=== PATIENT | female | born 1945 | race Caucasian/White ===

== ENCOUNTER 2021-07-16 15:24 | Inpatient (IN) | payer MEDICARE, OTHER ==
[~2021-07-16] VITALS: Ht 170.2 cm; Wt 106.1 kg
--- NOTE | 2021-07-16 15:45 | NUR ---
BIB PA FROM [facility],C/O DIZZINESS AND WEAKNESS X 2 WEEKS. AAOX4, NOT IN DISTRESS
--- NOTE | 2021-07-16 16:00 | NUR ---
BLOOD DRAWN AND SENT TO LAB
--- NOTE | 2021-07-16 16:20 | NUR ---
AT BED SIDE
--- NOTE | 2021-07-16 16:50 | NUR ---
PATIENT FOR CT HEAD VIA [facility]
[2021-07-16 17:01] LABS: BASOPHILS % (AUTO) 0.5 % (0.0-2.0); EOSINOPHILS % (AUTO) 2.9 % (0.0-6.0); HEMATOCRIT 44 % (33-45); HEMOGLOBIN 14.5 g/dL (11.5-14.8); LYMPHOCYTES # (AUTO) 3.6 K/uL (0.8-4.8); LYMPHOCYTES % (AUTO) 40.1 % (20.0-44.0); MEAN CORPUSCULAR HGB CONC 33 g/dl (31.0-36.0); MEAN CORPUSCULAR VOLUME 90 fL (82-100); MONOCYTES # (AUTO) 0.7 K/uL (0.1-1.30); MONOCYTES % (AUTO) 7.2 % (2.0-12.0); NEUTROPHILS # (AUTO) 4.5 K/uL (1.8-8.9); NEUTROPHILS % (AUTO) 49.3 % (43.0-81.0); PLATELET COUNT (AUTO) 281 K/uL (150-450); RED BLOOD CELL COUNT(AUTO) 4.85 MIL/uL (4.0-5.2); WHITE BLOOD COUNT (AUTO) 9.1 K/uL (4.3-11.0)
--- NOTE | 2021-07-16 17:21 | NUR ---
MOVE SHEET SUBMITTED AND CALLED FOR TELE BED.
[2021-07-16] MEDS ORDERED: CLOP75TA15 PO (17:31)
[2021-07-16] MEDS ORDERED: INSU100V3 SQ (17:31)
[2021-07-16] MEDS ORDERED: ISOS30TA86 PO (17:31)
[2021-07-16] MEDS ORDERED: POTA10TA10 PO (17:31)
[2021-07-16] MEDS ORDERED: METO25TA3 PO (17:31)
[2021-07-16] MEDS ORDERED: FESO8TAB PO (17:31)
[2021-07-16] MEDS ORDERED: ASPI-1169 PO (17:31)
[2021-07-16] MEDS ORDERED: MULT-447 PO (17:31)
[2021-07-16] MEDS ORDERED: FURO-144 PO (17:31)
[2021-07-16] MEDS ORDERED: FAMO40TA7 PO (17:31)
[2021-07-16] MEDS ORDERED: LEVO88TA5 PO (17:31)
[2021-07-16] MEDS ORDERED: GLIM2TAB31 PO (17:31)
[2021-07-16 17:40] LABS: CALCIUM, SERUM 9.5 mg/dL (8.5-10.1); CARBON DIOXIDE 29 mmol/L (21-32); CHLORIDE 106 mmol/L (98-107); CREATININE 0.9 mg/dL (0.6-1.3); GLUCOSE 152 mg/dL (74-106); SODIUM SERUM 143 mmol/L (136-145); UREA NITROGEN, BLOOD 17 mg/dL (7-18)
[2021-07-16 17:48] LABS: ALANINE AMINOTRANSFERASE 29 U/L (12-78); ALBUMIN 3.7 g/dL (3.4-5.0); ALKALINE PHOSPHATASE 58 U/L (46-116); ASPARTATE AMINOTRANSFERASE 21 U/L (15-37); BILIRUBIN,DIRECT 0.1 mg/dL (0.0-0.2); BILIRUBIN,TOTAL 0.5 mg/dL (0.2-1.0); TOTAL PROTEIN, SERUM 7.2 g/dL (6.4-8.2)
--- NOTE | 2021-07-16 18:03 | NUR ---
[facility] CALLED IT GENERALIST PAGED.
--- NOTE | 2021-07-16 18:04 | NUR ---
SWAB FOR COVID 19 TEST AND URINE SAMPLE SENT TO LAB.
[2021-07-16 18:28] LABS: BILIRUBIN,URINE NEGATIVE (NEGATIVE); COLOR,URINE YELLOW (YELLOW); LEUKOCYTE ESTERASE ,URINE NEGATIVE (NEGATIVE); NITRITE, URINE NEGATIVE (NEGATIVE); PH,URINE 5.5 (5.0-8.0); PROTEIN,URINE NEGATIVE (NEGATIVE); UGLUCOSE NEGATIVE (NEGATIVE); UROBILINOGEN,URINE 0.2 EU/dL (0.2)
[2021-07-16] MEDS ORDERED: MAG HYDROX/AL HYDROX/SIMETH 30 ML UDC PO PRN (18:30)
[2021-07-16] MEDS ORDERED: ONDANSETRON HCL/PF 4 MG/2 ML VIAL IVP PRN (18:30)
[2021-07-16] MEDS ORDERED: ACETAMINOPHEN 325 MG TABLET PO PRN (18:30)
[2021-07-16] MEDS ORDERED: Z GUARD REMEDY 4 OZ OINT TP PRN (18:30)
[2021-07-16] MEDS ORDERED: DEXTROSE 50%-WATER 50 ML DISP.SYRIN IV PRN (18:30)
--- NOTE | 2021-07-16 20:07 | NUR ---
REPORT GIVEN TO PABLO MILLER FOR NISA.
--- NOTE | 2021-07-16 20:25 | NUR ---
ENDBAND CUTTER HAND NOTE ADMIT 75 YEAR OLD FEMALE TO [facility] AT ROOM 105 ON TELEMETRY MONITORING,ADMISSION DIAGNOSIS IS NSTEMI PATIENT COMPLAINS DIZZINESS AND WEAKNESS FOR 2 WEEKS,ALERT ORIENTED X3 VERBALLY RESPONSIVE ON ROOM AIR O2:97% IV SITE IS ON RIGHT AC INTACT PATENT,AMBULATORY WITH ASSIST,SAFETY MEASURE IMPLEMENT BED IN LOW POSITION NAD LOCKED,BED ALARM IS ON,CALL LIGHT WITHIN REACH,CONTINUE TO MONITOR.
--- NOTE | 2021-07-16 20:26 | NUR ---
PT TRANSPORTED TO ROOM 105 ON FERMENTER PER ACLS PROTOCOL WITHOUT INCIDENT
--- NOTE | 2021-07-16 21:00 | NUR ---
RN NOTE PATIENT WISH HER CODE STATUS DNR INFORMED HER SON,CONTINUE TO MONITOR.
[2021-07-16] MEDS: ENOXAPARIN SODIUM 100 MG/ML DISP.SYRIN SQ SCH (21:01)
[2021-07-16 21:06] VITALS: BP 116/93
[2021-07-16] MEDS ORDERED: MAGNESIUM HYDROXIDE 30 ML UDC PO PRN (22:00)
[2021-07-16] MEDS: BLOOD SUGAR DIAGNOSTIC 1 EACH STRIP VI SCH (22:00)
[2021-07-17] VITALS: BP 143/61
[2021-07-17 04:00] VITALS: BP 144/69
[2021-07-17 06:28] LABS: BASOPHILS % (AUTO) 0.4 % (0.0-2.0); EOSINOPHILS % (AUTO) 4.2 % (0.0-6.0); HEMATOCRIT 42 % (33-45); HEMOGLOBIN 14.1 g/dL (11.5-14.8); LYMPHOCYTES # (AUTO) 3.7 K/uL (0.8-4.8); LYMPHOCYTES % (AUTO) 45.7 % (20.0-44.0); MEAN CORPUSCULAR HGB CONC 34 g/dl (31.0-36.0); MEAN CORPUSCULAR VOLUME 90 fL (82-100); MONOCYTES # (AUTO) 0.7 K/uL (0.1-1.30); MONOCYTES % (AUTO) 8.2 % (2.0-12.0); NEUTROPHILS # (AUTO) 3.3 K/uL (1.8-8.9); NEUTROPHILS % (AUTO) 41.5 % (43.0-81.0); PLATELET COUNT (AUTO) 246 K/uL (150-450); RED BLOOD CELL COUNT(AUTO) 4.66 MIL/uL (4.0-5.2)
[2021-07-17 06:46] LABS: CALCIUM, SERUM 8.8 mg/dL (8.5-10.1); CREATININE 0.8 mg/dL (0.6-1.3); PHOSPHORUS 3.3 mg/dL (2.5-4.9); POTASSIUM 3.6 mmol/L (3.5-5.1)
--- NOTE | 2021-07-17 06:55 | NUR ---
RN NOTE PATIENT REMAINS ALERT ORIENTED X3 VERBALLY RESPONSIVE ON ROOM AIR NO SOB NOT ACUTE DISTRESS NOTED,ALL DUE MEDS GIVEN MD ORDERED,KEPT CALL LIGHT WITHIN REACH ENDORSE NEXT COMING SHIFT FOR CONTINUATION OF CARE
--- NOTE | 2021-07-17 07:42 | NUR ---
RN OPENING NOTE PATIENT RECEIVED IN BED, SLEEPING. PATIENT ON ROOM AIR WITH NO SIGNS OF LABORED BREATHING AT THIS TIME. RIGHT AC 20G SL IN PLACE. OSTOMY BAG IN PLACE. NO SIGNS OF ACUTE DISTRESS NOTED AT THIS TIME. BED LOCKED AND IN LOWEST POSITION, CALL LIGHT WITHIN REACH, 2 SIDE RAILS UP. WILL CONTINUE TO MONITOR. Addendum: 07/17/21 at 0749 by GLADIS GAYLE RN CORRECTION: NO OSTOMY BAG IN PLACE.
[2021-07-17 08:00] VITALS: BP 151/72
[2021-07-17] MEDS: BLOOD SUGAR DIAGNOSTIC 1 EACH STRIP VI SCH ×4 (08:06→22:30)
[2021-07-17] MEDS: ISOSORBIDE MONONITRATE (30MG) 30 MG TAB.SR.24H PO SCH (08:12)
[2021-07-17] MEDS: FAMOTIDINE (20 MG) 20 MG TABLET PO SCH (08:12)
[2021-07-17] MEDS: ASPIRIN 81 MG TAB.CHEW PO SCH (08:12)
[2021-07-17] MEDS: LEVOTHYROXINE SODIUM 88 MCG TABLET PO SCH (08:12)
[2021-07-17] MEDS: METOPROLOL SUCCINATE 25 MG TAB.SR.24H PO SCH (08:12)
[2021-07-17] MEDS: CLOPIDOGREL BISULFATE 75 MG TABLET PO SCH (08:12)
[2021-07-17] MEDS: INSULIN REGULAR, HUMAN 100 UNIT/ML 3 ML VIAL SQ PRN ×3 (08:13→17:24)
[2021-07-17] MEDS: ENOXAPARIN SODIUM 100 MG/ML DISP.SYRIN SQ SCH (08:13)
[2021-07-17 09:07] LABS: CHOLESTEROL 291 mg/dL (<200); HDL CHOLESTEROL 35 mg/dL (40-60); LDL 164 mg/dL (0-99); TRIGLYCERIDES 394 mg/dL (30-150)
[2021-07-17] MEDS: TRAMADOL HCL 50 MG TABLET PO PRN ×2 (09:23→19:41)
[2021-07-17] MEDS: VALSARTAN 80 MG TABLET PO SCH (09:24)
[2021-07-17] MEDS: ATORVASTATIN 10 MG TABLET PO SCH (09:24)
[2021-07-17] MEDS ORDERED: IOHEXOL-350 100 ML VIAL IV ONE (11:01)
[2021-07-17] MEDS ORDERED: IV NS 0.9% 250 ML IV ONE (11:02)
[2021-07-17] MEDS ORDERED: NITROGLYCERIN 0.4 MG/TAB BOTTLE ONE (11:02)
[2021-07-17] MEDS ORDERED: CT SWABBABLE VALVE TRANS SET 1 EA INFUS.SET MC ONE (11:02)
[2021-07-17] MEDS ORDERED: METOPROLOL TARTRATE INJ 5 MG/5 ML AMPUL ONE (11:02)
[2021-07-17 12:00] VITALS: BP 98/57
[2021-07-17] MEDS: OXYBUTYNIN CHLORIDE 5 MG TABLET PO SCH ×3 (12:01→16:02)
[2021-07-17] MEDS ORDERED: METOPROLOL TARTRATE INJ 5 MG/5 ML AMPUL IVP PRN (12:30)
[2021-07-17] MEDS ORDERED: NITROGLYCERIN 0.4 MG/TAB BOTTLE SL ONE (12:30)
[2021-07-17 16:00] VITALS: BP 103/49
--- NOTE | 2021-07-17 18:38 | NUR ---
RN OPENING NOTE PATIENT REMAINS IN BED, RESTING. PATIENT ON ROOM AIR WITH NO SIGNS OF LABORED BREATHING AT THIS TIME. RIGHT AC 20G SL IN PLACE. NO SIGNS OF ACUTE DISTRESS NOTED AT THIS TIME. ALL NEEDS ATTENDED DURING SHIFT. BED LOCKED AND IN LOWEST POSITION, CALL LIGHT WITHIN REACH, 2 SIDE RAILS UP. WILL ENDORSE TO NUTRITION WORKER NURSE.
[2021-07-17 20:00] VITALS: BP 125/61
--- NOTE | 2021-07-17 20:00 | NUR ---
INSURANCE LAW SPECIALIST NOTE RECEIVED PTS IN BED AWAKE ALERT A/OX4 .ON ROOM AIR SATING 98%.WITH NO SOB NO DISTRESS NOTED BREATHING EVEN UNLABORED RIGHT AC 18G SL IN PLACE. INTACT AND PATENT AT THIS TIME.DUE MEDS GIVEN ORDERED, NO ASE NOTED ,V/S STABLE AFEBRILE , ON TELE SR 61 ON THE MONITOR . ALL NEEDS ATTENDED DURING SHIFT. BED LOCKED AND IN LOWEST POSITION, CALL LIGHT WITHIN REACH, 2 SIDE RAILS UP. WILL CONTINUE TO MONITOR PTS .
--- NOTE | 2021-07-17 21:20 | NUR ---
2119 DREW SENIOR DB2 SYSTEMS PROGRAMMER CALLED AND NOTIFIED US THAT PATIENT WILL UNDERGO LEFT HEART CATH IN AM TO BE DONE BY DR. PEÑALOZA. ORDERS FOR NPO AND LABS PLACED.
--- NOTE | 2021-07-17 21:30 | NUR ---
MARKETING PERFORMANCE ANALYST NOTES AT 2129 INFORMED PTS THAT SHE GONNA BE NPO POST [place] ,MADE HER AWARE THAT WE RECEIVED A CALL FROM DREW PUBLICIST , NOTIFIED US THAT PATIENT WILL UNDERGO LEFT HEART CATH IN AM TO BE DONE BY DR. PEÑALOZA. PTS VERBALIZED UNDERSTANDING .
[2021-07-17] MEDS: *INSULIN REGULAR(HUMULIN R)HUM 100 UNIT/ML VIAL SQ PRN (22:30)
[2021-07-18] VITALS (36 sets, daily range): BP systolic 97–177; BP diastolic 50–89
[2021-07-18 04:25] LABS: BASOPHILS % (AUTO) 0.4 % (0.0-2.0); EOSINOPHILS % (AUTO) 4.4 % (0.0-6.0); HEMATOCRIT 42 % (33-45); LYMPHOCYTES # (AUTO) 2.8 K/uL (0.8-4.8); MEAN CORPUSCULAR HGB CONC 34 g/dl (31.0-36.0); MEAN CORPUSCULAR VOLUME 90 fL (82-100); MONOCYTES # (AUTO) 0.5 K/uL (0.1-1.30); MONOCYTES % (AUTO) 8.3 % (2.0-12.0); NEUTROPHILS # (AUTO) 2.7 K/uL (1.8-8.9); NEUTROPHILS % (AUTO) 42.9 % (43.0-81.0); PLATELET COUNT (AUTO) 243 K/uL (150-450); RED BLOOD CELL COUNT(AUTO) 4.63 MIL/uL (4.0-5.2); WHITE BLOOD COUNT (AUTO) 6.3 K/uL (4.3-11.0)
[2021-07-18 06:16] LABS: CALCIUM, SERUM 8.8 mg/dL (8.5-10.1); CREATININE 0.8 mg/dL (0.6-1.3); MAGNESIUM 2.3 mg/dL (1.8-2.4); PHOSPHORUS 3.7 mg/dL (2.5-4.9); POTASSIUM 4.1 mmol/L (3.5-5.1)
--- NOTE | 2021-07-18 06:56 | NUR ---
RN NOTE PATIENT RESTING IN BED. ON ROOM AIR, NO S/S OF ANY RESPIRATORY DISTRESS. ALL DUE MEDS GIVEN ORDERED. FOR HEART CATH TODAY, CONSENT SIGNED. NPO POST MIDNIGHT. BED LOCKED AND IN LOWEST POSITION. CALL LIGHT WITHIN REACH. WILL ENDORSE TO AM SHIFT.
--- NOTE | 2021-07-18 07:22 | NUR ---
RN OPENING NOTE PATIENT RECEIVED IN BED, AWAKE. PATIENT ON ROOM AIR WITH NO SIGNS OF LABORED BREATHING AT THIS TIME. RIGHT AC 20G IV IN PLACE, PATENT. PT NPO FOR CARDIAC KRAFT DIGESTER OPERATOR PROCEDURE SCHEDULED THIS AM AT 0830. NO SIGNS OF ACUTE DISTRESS NOTED AT THIS TIME. BED LOCKED AND IN LOWEST POSITION, CALL LIGHT WITHIN REACH, 2 SIDE RAILS UP. WILL CONTINUE TO MONITOR.
[2021-07-18] MEDS: LEVOTHYROXINE SODIUM 88 MCG TABLET PO SCH (07:30)
--- NOTE | 2021-07-18 07:33 | NUR ---
RN NOTE PATIENT NPO FOR PROCEDURE. ALL AM PO MEDS HELD.
[2021-07-18] MEDS: BLOOD SUGAR DIAGNOSTIC 1 EACH STRIP VI SCH ×4 (07:41→21:12)
[2021-07-18] MEDS ORDERED: IV NS 0.9% 1,000 ML ONE (08:06)
[2021-07-18] MEDS ORDERED: IV SET PRIMARY PUMP SET 1 EA INFUS.SET MC ONE (08:06)
[2021-07-18] MEDS ORDERED: IODIXANOL 150 ML IV ONE (08:06)
[2021-07-18] MEDS ORDERED: LIDOCAINE HCL/MPF 1% 30 ML VIAL IJ ONE (08:06)
[2021-07-18] MEDS ORDERED: MIDAZOLAM HCL 2 MG/2ML VIAL ONE (08:07)
[2021-07-18] MEDS ORDERED: NITROGLYCERIN IN 5 % DEXTROSE 250 ML IV ONE (08:07)
[2021-07-18] MEDS ORDERED: FENTANYL PF 100MCG/2ML AMPUL ONE (08:08)
[2021-07-18] MEDS: FAMOTIDINE (20 MG) 20 MG TABLET PO SCH (08:23)
[2021-07-18] MEDS: ISOSORBIDE MONONITRATE (30MG) 30 MG TAB.SR.24H PO SCH (08:23)
[2021-07-18] MEDS: OXYBUTYNIN CHLORIDE 5 MG TABLET PO SCH ×3 (08:23→17:11)
[2021-07-18] MEDS: ASPIRIN 81 MG TAB.CHEW PO SCH (08:23)
[2021-07-18] MEDS: VALSARTAN 80 MG TABLET PO SCH (08:23)
[2021-07-18] MEDS: ATORVASTATIN 10 MG TABLET PO SCH (08:23)
[2021-07-18] MEDS: METOPROLOL SUCCINATE 25 MG TAB.SR.24H PO SCH (08:24)
[2021-07-18] MEDS: CLOPIDOGREL BISULFATE 75 MG TABLET PO SCH (08:24)
[2021-07-18] MEDS ORDERED: HEPARIN SODIUM, PORCINE 1,000 UNIT/ML VIAL ONE (09:41)
[2021-07-18] MEDS ORDERED: HEPARIN SODIUM, PORCINE 5000 UNITS/1 ML VIAL ONE (09:41)
[2021-07-18] MEDS ORDERED: IODIXANOL 320MG/ML 50 ML IV ONE (09:55)
[2021-07-18] MEDS ORDERED: TICAGRELOR 90 MG TABLET PO ONE (10:08)
--- NOTE | 2021-07-18 10:34 | NUR ---
RN NOTE REPORT GIVEN TO DEWAYNE SHAH FOR NISA POST SENIOR INSPECTOR PROCEDURE.
--- NOTE | 2021-07-18 10:50 | NUR ---
RN NOTES: RECEIVED PT. FROM CATH. LAB. DEPT, S/P STENT PLACEMENT, LAD., RIGHT TRANS-RADIAL BAND NOTED INTACT, NO SSx OF BLEEDING, NO PAIN, NO TINGLING SENSATION, WITH PALPABLE PULSE, WILL PLACE FLAT ON BED/BEDREST FOR 2 HRS PER MD ORDERS. CALL LIGHT WITHIN REACH. WILL CONTINUE PT. MONITORING.
--- NOTE | 2021-07-18 10:54 | NUR ---
RN NOTE REPORT GIVEN TO MARCUS SHAH IN ICU.
[2021-07-18] MEDS: TRAMADOL HCL 50 MG TABLET PO PRN ×2 (12:11→18:14)
[2021-07-18] MEDS: INSULIN REGULAR, HUMAN 100 UNIT/ML 3 ML VIAL SQ PRN ×2 (12:36→17:25)
--- NOTE | 2021-07-18 13:00 | NUR ---
STARTED T-R -BAND BALLOON DEFLATION 3CC PER PROTOCOL, NO SSx OF BLEEDING AND NO REDNESS ON THE SITE; WILL CONTINUE TO DEFLATE PER PROTOCOL
--- NOTE | 2021-07-18 14:30 | NUR ---
T-R-BAND DEFLATION COMPLETED WITH A TOTAL OF 22CC AIR; NO SSx OF BLEEDING/REDNESS NOTED AT THIS TIME; TEGADERM DRESSING APPLIED AFTER BALLOON DEFLATION; PT. RESTING COMFORTABLY, NO SSx OF ANY DISTRESS NOTED. WILL CONTINUE PT. MONITORING.
--- NOTE | 2021-07-18 19:00 | NUR ---
REPORT GIVEN TO SHAHNAZ, PT. REPORTED BEING NAUSEATED AT 1845PM, ZOFRAN GIVEN ORDERED. NO SSx OF DISTRESS NOTED; ABLE TO MAKE NEEDS KNOWN; CALL LIGHT WITHIN REACH; ENDORSED FOR CONTINUITY OF CARE.
[2021-07-19] VITALS (15 sets, daily range): BP systolic 107–136; BP diastolic 45–94
[2021-07-19] MEDS: TRAMADOL HCL 50 MG TABLET PO PRN ×3 (04:38→23:38)
[2021-07-19 04:59] LABS: BASOPHILS % (AUTO) 0.5 % (0.0-2.0); EOSINOPHILS % (AUTO) 2.9 % (0.0-6.0); HEMATOCRIT 42 % (33-45); HEMOGLOBIN 14.1 g/dL (11.5-14.8); LYMPHOCYTES # (AUTO) 2.3 K/uL (0.8-4.8); LYMPHOCYTES % (AUTO) 25.7 % (20.0-44.0); MEAN CORPUSCULAR HGB CONC 34 g/dl (31.0-36.0); MEAN CORPUSCULAR VOLUME 91 fL (82-100); MONOCYTES # (AUTO) 0.7 K/uL (0.1-1.30); MONOCYTES % (AUTO) 7.7 % (2.0-12.0); NEUTROPHILS # (AUTO) 5.5 K/uL (1.8-8.9); NEUTROPHILS % (AUTO) 63.2 % (43.0-81.0); PLATELET COUNT (AUTO) 239 K/uL (150-450); WHITE BLOOD COUNT (AUTO) 8.8 K/uL (4.3-11.0)
[2021-07-19 05:28] LABS: CALCIUM, SERUM 8.8 mg/dL (8.5-10.1); CARBON DIOXIDE 27 mmol/L (21-32); CHLORIDE 109 mmol/L (98-107); CREATININE 0.6 mg/dL (0.6-1.3); GLUCOSE 133 mg/dL (74-106); POTASSIUM 3.7 mmol/L (3.5-5.1); SODIUM SERUM 143 mmol/L (136-145); UREA NITROGEN, BLOOD 12 mg/dL (7-18)
[2021-07-19] MEDS: LEVOTHYROXINE SODIUM 88 MCG TABLET PO SCH (07:30)
[2021-07-19] MEDS: BLOOD SUGAR DIAGNOSTIC 1 EACH STRIP VI SCH ×4 (07:30→21:55)
--- NOTE | 2021-07-19 07:30 | NUR ---
RN OPENING NOTE PT OBSERVED IN BED SLEEPING. PT IS ON RA TOLERATING WELL WITH NO SIGNS OF DISTRESS OR LABORED BREATHING SAT 95%. PT IS A/OX4 AND USES BEDSIDE COMMODE. IV ACCESS R AC. PT BS 129, PER SLIDING SCALE NO COVERAGE NEEDED AT THIS TIME. BED IS LOCKED IN LOWEST POSITION X2 BED RAILS UP AND ALL HOSPITAL SAFETY PROTOCOLS ARE IN PLACE. WILL CONTINUE TO MONITOR THIS SHIFT.
[2021-07-19] MEDS: *INSULIN REGULAR(HUMULIN R)HUM 100 UNIT/ML VIAL SQ PRN ×3 (07:41→21:57)
[2021-07-19] MEDS: ISOSORBIDE MONONITRATE (30MG) 30 MG TAB.SR.24H PO SCH (09:00)
[2021-07-19] MEDS: VALSARTAN 80 MG TABLET PO SCH (09:00)
[2021-07-19] MEDS: OXYBUTYNIN CHLORIDE 5 MG TABLET PO SCH ×3 (09:57→16:42)
[2021-07-19] MEDS: ASPIRIN 81 MG TAB.CHEW PO SCH (09:57)
[2021-07-19] MEDS: FAMOTIDINE (20 MG) 20 MG TABLET PO SCH (09:59)
[2021-07-19] MEDS: TICAGRELOR 90 MG TABLET PO SCH ×2 (10:00→16:42)
[2021-07-19] MEDS: METOPROLOL SUCCINATE 25 MG TAB.SR.24H PO SCH (10:06)
[2021-07-19] MEDS: ATORVASTATIN 10 MG TABLET PO SCH (10:07)
[2021-07-19] MEDS: CLOPIDOGREL BISULFATE 75 MG TABLET PO SCH (10:08)
--- NOTE | 2021-07-19 10:50 | NUR ---
RN NOTE: TRANSFER PT IS STABLE AT THIS TIME AND TRANSFERRED TO #325/1 WITH ALL BELONGINGS AND MEDICATIONS. BEDSIDE REPORT GIVEN TO PABLO SIMS.
--- NOTE | 2021-07-19 11:07 | NUR ---
PATIENT TARNFERRED FROM ICU TO ROOM 325-1 REPORTED BY ANA. S/P CARDIAC STENT ON 07/18/21, IN NO ACUTE DISTRESS OBSERVED, DENIES CHEST PAIN. WILL CONTINUE TO MONITOR.
--- NOTE | 2021-07-19 13:00 | NUR ---
RN NOTES RECEIVED PATIENT ENDORSED BY KAVYA. PATIENT IS AWAKE ON BED AND A/O X4. ON ROOM AIR TOLERATING WELL. NO SOB NOTED. NOT IN DISTRESS. WITH NO COMPLAINTS OF PAIN OR DISCOMFORT AT THIS TIME. WITH IV ACCESS ON RIGHT AC G18 SALINE LOCKED, PATENT AND INTACT. DUE MEDS GIVEN. SAFETY MEASURES IN PLACED. CALL LIGHT WITHIN REACH. BED ON LOWEST LOCKED POSITION, SIDE RAILS UP X2. WILL CONTINUE TO MONITOR.
[2021-07-19] MEDS: INSULIN REGULAR, HUMAN 100 UNIT/ML 3 ML VIAL SQ PRN (17:25)
--- NOTE | 2021-07-19 18:43 | NUR ---
RN CLOSING NOTES PATIENT AWAKE ON BED AND A/O X4. ON ROOM AIR TOLERATING WELL. NO SOB NOTED. NOT IN DISTRESS. WITH NO COMPLAINTS OF PAIN OR DISCOMFORT AT THIS TIME. WITH IV ACCESS ON RIGHT AC G18 SALINE LOCKED, PATENT AND INTACT. DUE MEDS GIVEN. DUE MEDS GIVEN. SAFETY MEASURES IN PLACED. CALL LIGHT WITHIN REACH. BED ON LOWEST LOCKED POSITION, SIDE RAILS UP X2. WILL ENDORSE TO NEXT SHIFT FOR NISA.
--- NOTE | 2021-07-19 20:18 | NUR ---
RECEIVED PATIENT IN BED, ALERT/ORIENTED X4, ROOM AIR, NO COMPLAIN OF PAIN, VS STABLE, WEAKNESS, UNABLE TO AMBULATE, ABLE TO TRANSFER FROM BED TO BSC WITH ONE PERSON ASSIST, KEPT SAFE, WILL CONTINUE TO MONITOR.
[2021-07-20] MEDS: INSULIN REGULAR, HUMAN 100 UNIT/ML 3 ML VIAL SQ PRN ×2 (06:38→13:49)
[2021-07-20] MEDS: BLOOD SUGAR DIAGNOSTIC 1 EACH STRIP VI SCH ×4 (06:41→17:30)
--- NOTE | 2021-07-20 06:59 | NUR ---
S/P STENT PLACEMENT 07/18/21, NO CHEST PAIN, NO DISTRESS, GENERALIZED WEAKNESS, ASSISTED TO BSC, VOIDING WITHOUT DIFFICULTY, GIVEN TRAMADOL FOR BLE PAIN, ADEQUATE RELIEF, ACCUCHECK AND SLIDING SCALE, BP CONTROL, CONTINUE STATIN, PT EVAL AND TREATMENT, MD RECOMMENDS SKILLED REHAB.
--- NOTE | 2021-07-20 07:00 | NUR ---
MS RN OPENING NOTE RECEIVED PATIENT IN BED, ALERT/ORIENTED X4, ROOM AIR, NO COMPLAINT OF PAIN, VS STABLE, BLE WEAKNESS, UNABLE TO AMBULATE, ABLE TO TRANSFER FROM BED TO BSC WITH ONE PERSON ASSIST, SAFETY MEASURES IN PLACE: BED IN LOWEST LOCKED POSITION, SIDE RAILS UP X 2, CALL LIGHT WITHIN REACH. WILL CONTINUE TO MONITOR.
[2021-07-20 07:23] LABS: BASOPHILS % (AUTO) 0.3 % (0.0-2.0); HEMATOCRIT 41 % (33-45); HEMOGLOBIN 13.8 g/dL (11.5-14.8); LYMPHOCYTES # (AUTO) 2.2 K/uL (0.8-4.8); LYMPHOCYTES % (AUTO) 28.5 % (20.0-44.0); MEAN CORPUSCULAR HGB CONC 34 g/dl (31.0-36.0); MEAN CORPUSCULAR VOLUME 90 fL (82-100); MONOCYTES # (AUTO) 0.6 K/uL (0.1-1.30); MONOCYTES % (AUTO) 8.2 % (2.0-12.0); NEUTROPHILS # (AUTO) 4.6 K/uL (1.8-8.9); PLATELET COUNT (AUTO) 230 K/uL (150-450); RED BLOOD CELL COUNT(AUTO) 4.51 MIL/uL (4.0-5.2); WHITE BLOOD COUNT (AUTO) 7.8 K/uL (4.3-11.0)
[2021-07-20] MEDS: LEVOTHYROXINE SODIUM 88 MCG TABLET PO SCH (07:54)
[2021-07-20 08:20] LABS: CALCIUM, SERUM 8.7 mg/dL (8.5-10.1); CARBON DIOXIDE 29 mmol/L (21-32); CHLORIDE 108 mmol/L (98-107); CREATININE 0.7 mg/dL (0.6-1.3); GLUCOSE 137 mg/dL (74-106); POTASSIUM 3.5 mmol/L (3.5-5.1); SODIUM SERUM 144 mmol/L (136-145); UREA NITROGEN, BLOOD 13 mg/dL (7-18)
[2021-07-20] MEDS: ISOSORBIDE MONONITRATE (30MG) 30 MG TAB.SR.24H PO SCH (08:43)
[2021-07-20] MEDS: CLOPIDOGREL BISULFATE 75 MG TABLET PO SCH (08:45)
[2021-07-20] MEDS: VALSARTAN 80 MG TABLET PO SCH (08:46)
[2021-07-20 08:47] VITALS: BP 115/60
[2021-07-20] MEDS: METOPROLOL SUCCINATE 25 MG TAB.SR.24H PO SCH (08:47)
[2021-07-20] MEDS: OXYBUTYNIN CHLORIDE 5 MG TABLET PO SCH ×3 (08:47→17:26)
[2021-07-20] MEDS: ASPIRIN 81 MG TAB.CHEW PO SCH (08:47)
[2021-07-20] MEDS: ATORVASTATIN 10 MG TABLET PO SCH (08:48)
[2021-07-20] MEDS: FAMOTIDINE (20 MG) 20 MG TABLET PO SCH (08:48)
[2021-07-20] MEDS: TICAGRELOR 90 MG TABLET PO SCH ×2 (09:54→17:26)
[2021-07-20] MEDS ORDERED: ATOR10TA PO (10:12)
[2021-07-20] MEDS ORDERED: TICA90TA PO (10:12)
--- NOTE | 2021-07-20 19:55 | NUR ---
MS/MANAGER ORDER NOTE PATIENT IS BEING DISCHARGED TO SNF. PATIENT IS ALERT AND ORIENTED X 4. ABLE TO MAKE NEEDS KNOWN. DENIES PAIN AT THIS TIME. VS: BP 145/73 HR 89 RR 18 T 99.0 O2 SAT 96% ON ROOM AIR. IV DISCONTINUED TO RIGHT AC. TIP INTACT AND PATIENT TOLERATED WELL. MINIMAL AMOUNT OF BLEEDING NOTED. PRESSURE DRESSING APPLIED. ID BAND REMOVED. ALL DISCHARGE PAPERWORK REVIEWED AND SIGNED WITH PATIENT. ALL BELONGINGS SENT WITH PATIENT. REPORT GIVEN TO 2 VP RESEARCH. PATIENT LEAVING VIA GURNEY AND AMBULANCE. PATIENT DISCHARGED AT APPROX. 1955.
== END 2021-07-20 19:55 | DRG 247 ==
LOC: ER 15:27 → TELE1 20:06 → ICU 07-18 10:50 → MED 07-19 10:42
PROVIDERS: ADMIT Internal Medicine; ATTEND Internal Medicine
PROC: 4A023N7 Measurement of Cardiac Sampling and Pressure, Left Heart, Percutaneous Approach (ICD-10-PCS; principal; 2021-07-18)
PROC: 027034Z Dilation of Coronary Artery, One Artery with Drug-eluting Intraluminal Device, Percutaneous Approach (ICD-10-PCS; 2021-07-18)
PROC: 02703ZZ Dilation of Coronary Artery, One Artery, Percutaneous Approach (ICD-10-PCS; 2021-07-18)
PROC: 4A0335C Measurement of Arterial Flow, Coronary, Percutaneous Approach (ICD-10-PCS; 2021-07-18)
PROC: B211YZZ Fluoroscopy of Multiple Coronary Arteries using Other Contrast (ICD-10-PCS; 2021-07-18)
DX: I21.4 Non-ST elevation (NSTEMI) myocardial infarction (principal); G37.8 Other specified demyelinating diseases of central nervous system; R13.10 Dysphagia, unspecified; I25.110 Atherosclerotic heart disease of native coronary artery with unstable angina pectoris; E03.9 Hypothyroidism, unspecified; J44.9 Chronic obstructive pulmonary disease, unspecified; Z20.822 Contact with and (suspected) exposure to COVID-19; I11.0 Hypertensive heart disease with heart failure; I50.9 Heart failure, unspecified; K21.9 Gastro-esophageal reflux disease without esophagitis; N32.81 Overactive bladder; R53.1 Weakness; R26.9 Unspecified abnormalities of gait and mobility; E78.5 Hyperlipidemia, unspecified; J32.9 Chronic sinusitis, unspecified; I25.2 Old myocardial infarction; Z88.6 Allergy status to analgesic agent; Z88.5 Allergy status to narcotic agent; Z91.09 Other allergy status, other than to drugs and biological substances; Z79.4 Long term (current) use of insulin; Z79.84 Long term (current) use of oral hypoglycemic drugs; Z79.02 Long term (current) use of antithrombotics/antiplatelets; Z79.899 Other long term (current) drug therapy; E66.01 Morbid (severe) obesity due to excess calories; Z68.36 Body mass index [BMI] 36.0-36.9, adult; Z86.73 Personal history of transient ischemic attack (TIA), and cerebral infarction without residual deficits; Z79.82 Long term (current) use of aspirin; E11.42 Type 2 diabetes mellitus with diabetic polyneuropathy
CPT/HCPCS: 36415; 70450-TC; 71045-TC; 75574; 80048-TC; 80061-TC; 80076-TC; 82962-TC; 83735-TC; 84100-TC; 84443-TC; 84484-TC; 84703-TC; 85025-TC; 85347; 85730-TC; 87081-TC; 92980; 93307-TC; 97116-TC; 97530-TC; C1725; C1769; C1887; C9803; G0378; G0500; J1644; J1650; J1815; J2250; J2405; J3010; J3490; J7030; J7050; Q9967